=== PATIENT | male | born 1940 | race Caucasian/White ===

== ENCOUNTER 2021-11-22 18:06 | Emergency (ER) | payer MEDICARE, MEDICAID, SELFPAY ==
[2021-11-22 19:07] VITALS: BP 142/76; PULSE 58; RESP 18; TEMP 36.6; O2SAT 95; BMI 20.3
--- NOTE | 2021-11-22 19:17 | W.ED.PSYCHS ---
Documented by User: Lalo Esteban MD 11/27/21 23:50 HPI - Psych General: Chief Complaint: Psychiatric Symptoms Stated Complaint: PSYCH EVAL Time Seen by Provider: 11/22/21 19:16 History of Present Illness: Mr Barr is a 81-year-old gentleman with history of decreased mobility, hypertension, CAD, peripheral vascular disease, speech disturbance, lung cancer, who currently resides at a fdc who presents emergency department due to concern for mental health exam. Per fdc report the patient has been more combative and sexually inappropriate. The patient is significantly difficult to understand which is apparently chronic for him however he denies any specific complaints. Review of Systems General: Reports: 10 or more systems reviewed and unremarkable except in HPI and below PFSH ED PFSH: Medical History BPH (benign prostatic hyperplasia) Dementia Hyperlipemia Hypothyroid Surgical History No significant past surgical history Social History Lives independently: No Housing: [facility] Physical Exam Const: COMMON NORMALS: alert GENERAL APPEARANCE: cooperative and well developed HENMT: COMMON NORMALS: normocephalic and atraumatic HEAD & SCALP: normocephalic and atraumatic THROAT: posterior oropharynx normal Eye: COMMON NORMALS: conjunctivae normal CONJUNCTIVA: Yes conjunctivae normal SCLERA: sclerae normal Neck/C-Spine: COMMON NORMALS: supple GENERAL: Yes trachea midline Resp: COMMON NORMALS: normal respiratory effort EFFORT & INSPECTION: Yes able to speak in complete sentences Cardio: COMMON NORMALS: regular rate and regular rhythm RATE: regular rate RHYTHM: regular rhythm GI: COMMON NORMALS: Soft to palpation PALPATION: Yes Soft to palpation and No Tenderness to palpation present (GI) PERCUSSION: normal to percussion Extremity: GENERAL: Yes normal exam except as noted and No edema Neuro: COMMON NORMALS: CN's II-XII intact bilaterally (Aside from dysarthria), moves all extremities, no focal motor deficits and no sensory deficits noted SENSORIUM/ORIENTATION: Yes alert and No Orientation impaired SPEECH: abnormal speech (Dysarthria) Psych: COMMON NORMALS: mental status grossly normal and Normal thought process present THOUGHT PROCESS: Normal thought process present Course ED course: - Patient was seen and evaluated by me at bedside - Vital signs obtained - Initial evaluation notable for dysarthric speech without other neurologic deficits, baseline is somewhat unclear. Denies medical complaints. - CT head negative for acute intercranial hemorrhage or mass. -Glucose mildly low however patient is not medications that would cause hypoglycemia and he tolerated a sandwich well. - Patient's SNF refused to take the patient back - Patient care handed off to overnight ED physician. Labs added and pending at time of care transition. Vital Signs: Vital signs: Vital Signs Temperature 98.0 F 11/24/21 18:34 Pulse Rate 75 11/25/21 10:13 Respiratory Rate 14 11/25/21 10:13 Blood Pressure 132/68 11/25/21 10:13 Pulse Oximetry 95 11/25/21 10:13 [facility] - Psych Lab Data : 11/23/21 01:52 11/23/21 01:[address] 11/22/21 22:59 IMPRESSION: No acute intracranial abnormality. Laboratory Results WBC 8.1 10^3/uL (4.0-10.0) 11/23/21 01:52 RBC 5.23 10^6/uL (4.1-5.3) 11/23/21 01:52 Hgb 14.7 g/dL (11.7-16.6) 11/23/21 01:52 Hct 44.1 % (42.0-52.0) 11/23/21 01:52 MCV 84.3 fl (80-94) 11/23/21 01:52 MCH 28.1 pg (28.0-34.0) 11/23/21 01:52 MCHC 33.3 g/dL (30.0-36.0) 11/23/21 01:52 RDW 15.7 % (12.1-15.1) H 11/23/21 01:52 Plt Count 237 10^3/cmm (130-400) 11/23/21 01:52 MPV 10.6 fL (7.4-10.4) H 11/23/21 01:52 Neut % (Auto) 66.7 % 11/23/21 01:52 Lymph % (Auto) 15.9 % 11/23/21 01:52 [place] % (Auto) 10.6 % 11/23/21 01:52 Eos % (Auto) 5.8 % 11/23/21 01:52 Baso % (Auto) 0.6 % 11/23/21 01:52 Neut # (Auto) 5.37 10^3/uL (1.8-7.7) 11/23/21 01:52 Lymph # (Auto) 1.3 10^3/uL (0.8-4.8) 11/23/21 01:52 [place] # (Auto) 0.9 10^3/uL (0.2-0.9) 11/23/21 01:52 Eos # (Auto) 0.5 10^3/uL (0.0-0.8) 11/23/21 01:52 Baso # (Auto) 0.1 10^3/uL (0.0-0.1) 11/23/21 01:52 Nucleated RBC % (auto) 0 % 11/23/21 01:52 Nucleated RBCs # 0.0 /100WBC 11/23/21 01:52 Sodium 137 mmol/L (136-145) 11/23/21 01:52 Potassium 4.0 mmol/L (3.5-5.1) 11/23/21 01:52 Chloride 100 mmol/L (98-107) 11/23/21 01:52 Carbon Dioxide 28 mmol/L (22-29) 11/23/21 01:52 Anion Gap 13.0 (5-19) 11/23/21 01:52 BUN 8 mg/dL (8-23) 11/23/21 01:52 Creatinine 0.7 mg/dL (0.7-1.2) 11/23/21 01:52 GFR Calculation Not Reportable 11/23/21 01:52 Glucose 117 mg/dL (65-115) H 11/23/21 01:52 POC Glucose 83 mg/dL (70-110) 11/23/21 08:34 Calculated Osmolality 283 mOsm/kg (285-295) L 11/23/21 01:52 Calcium 9.1 mg/dL (8.5-10.5) 11/23/21 01:52 Total Bilirubin 0.6 mg/dL (0.15-1.2) 11/23/21 01:52 AST 25 U/L (0-40) 11/23/21 01:52 ALT 21 U/L (0-41) 11/23/21 01:52 Alkaline Phosphatase 101 IU/L (40-130) 11/23/21 01:52 Total Protein 7.2 g/dL (6.6-8.7) 11/23/21 01:52 Albumin 4.2 g/dL (3.5-5.2) 11/23/21 01:52 Globulin 3.0 g/dL (1.3-4.6) 11/23/21 01:52 TSH 2.84 uIU/mL (0.27-4.20) 11/23/21 01:52 Urine Color Cancelled 11/23/21 13:00 Urine Color Yellow (Yellow) 11/23/21 13:00 Urine Appearance Cancelled 11/23/21 13:00 Urine Appearance Clear (CLEAR) 11/23/21 13:00 Urine pH 7 (5-7) 11/23/21 13:00 Urine pH Cancelled 11/23/21 13:00 Ur Specific [place] 1.010 (1.005-1.030) 11/23/21 13:00 Ur Specific [place] Cancelled 11/23/21 13:00 Urine Protein Cancelled 11/23/21 13:00 Urine Protein Neg (Negative) 11/23/21 13:00 Urine Glucose (UA) Cancelled 11/23/21 13:00 Urine Glucose (UA) Norm (Normal) 11/23/21 13:00 Urine Ketones Cancelled 11/23/21 13:00 Urine Ketones Negative (Negative) 11/23/21 13:00 Urine Blood Cancelled 11/23/21 13:00 Urine Blood Neg (Negative) 11/23/21 13:00 Urine Nitrate Cancelled 11/23/21 13:00 Urine Nitrate Negative (Negative) 11/23/21 13:00 Urine Bilirubin Cancelled 11/23/21 13:00 Urine Bilirubin Neg (Negative) 11/23/21 13:00 Prot Sulfosalicylic Acd Cancelled 11/23/21 13:00 Urine Urobilinogen Cancelled 11/23/21 13:00 Urine Urobilinogen Neg mg/dL (Negative) 11/23/21 13:00 Ur Leukocyte Esterase Cancelled 11/23/21 13:00 Ur Leukocyte Esterase Negative (Negative) 11/23/21 13:00 Salicylates < 0.3 mg/dL (3-10) L 11/23/21 01:52 Urine Opiates Screen Negative ng/mL (Negative) 11/23/21 13:00 Acetaminophen < 5.0 ug/mL (10-30) L 11/23/21 01:52 Ur Barbiturates Screen Negative ng/mL (Negative) 11/23/21 13:00 Ur Phencyclidine Scrn Negative ng/mL (Negative) 11/23/21 13:00 Ur Amphetamines Screen Negative ng/mL (Negative) 11/23/21 13:00 U Benzodiazepines Scrn Positive ng/mL (Negative) H 11/23/21 13:00 Urine Cocaine Screen Negative ng/mL (Negative) 11/23/21 13:00 U Marijuana (THC) Screen Negative ng/mL (Negative) 11/23/21 13:00 Ethyl Alcohol < 10 mg/dL (0-10) 11/23/21 01:52 Coronavirus 229E (PCR) Not detected (NOT DETECT) 11/23/21 08:15 SARS-CoV-2 (PCR) Not detected (NOT DETECT) 11/23/21 08:15 Discharge Plan Discharge Patient Disposition: [facility] Clinical Impression: Behavioral disorder, Hypothyroid, BPH (benign prostatic hyperplasia), Dementia with behavioral disturbance, Hearing loss of aging Condition: Stable Discharge Diet: Usual diet Discharge Activity: Resume usual activity Coding Level of Care Code ED Label Printing Machinist for Chg Fwd Exam Comprehensive Documented by User: Bro Sevilla DO 11/28/21 06:01 HPI - Psych General: Chief Complaint: Psychiatric Symptoms Stated Complaint: PSYCH EVAL Time Seen by Provider: 11/22/21 19:16 PFSH ED PFSH: Medical History BPH (benign prostatic hyperplasia) Dementia Hyperlipemia Hypothyroid Surgical History No significant past surgical history Social History Lives independently: No Housing: [facility] Course Vital Signs: Vital signs: Vital Signs Temperature 98.0 F 11/24/21 18:34 Pulse Rate 75 11/25/21 10:13 Respiratory Rate 14 11/25/21 10:13 Blood Pressure 132/68 11/25/21 10:13 Pulse Oximetry 95 11/25/21 10:13 MDM - Psych Medical Decision Making Care assumed a change of shift from Dr. Muir. Reported patient was aggressive at the fdc. She did require Ativan and Haldol earlier this morning he is sedate now I cannot arouse him his vital signs are stable labs are reviewed. Dr. Gill was consulted through the night there is nodded no yet on the chart were trying to get a hold of him to get his opinion on. Case management informed me that the patient has been discharged from the fdc and they will not accept him back evidently this is somehow legal due to his behaviors. Not making attempts for geriatric psych placement although this is likely to be difficult. I talked to Dr. Spencer who is television specialist now for psychiatry. We will treat him with Dr. Gill will try to initiate some medications so that were not continually reacting to his behavior with sedative medications. Case management is working on options for disposition and care. 11/24/2021 Receiving facility has been secured we are waiting for transportation. [facility] declined transport due to weather. They plan to transport in the morning. Medical Records I reviewed the patient's medical records. Lab Data I reviewed the patient's lab results. : 11/23/21 01:52 11/23/21 01:[address] 11/22/21 22:59
--- NOTE | 2021-11-22 19:57 | PC.NURSE ---
patient states he made someone mad because I called him a pussy and deneis other complaints. reports using a walker at home. respirations even equal and unlabored.
--- NOTE | 2021-11-22 21:59 | P.NPUCON_ITS ---
Providers/Reason for Consult Consulting Physican/Specialty*: Arcadio Gill MD psychiatry. Reason for Consult*: Evaluate for underlying psychiatric. Requesting Physcian: Lalo Esteban Psych Consult HPI History of Present Illness Chacho Barr is a 81 year old male who presented to the emergency department with the following report: Chief Complaint: Psychiatric Symptoms Stated Complaint: PSYCH EVAL Time Seen by Provider: 11/22/21 19:16 History of Present Illness:?? Mr Barr is a 81-year-old gentleman with history of decreased mobility, hypertension, CAD, peripheral vascular disease, speech disturbance, lung cancer, who currently resides at a custodial who presents emergency department due to concern for mental health exam.? Per custodial report the patient has been more combative and sexually inappropriate.? The patient is significantly difficult to understand which is apparently chronic for him however he denies any specific complaints. He presented and had a conversation with the attending physician and the consult was requested to further there was an actual need for continued geriatric psychiatric services. However he was never able to engage this technical publications writer via video. For about 6 to 7 minutes this technical publications writer attempted to engage him along with the nurse and he never once looked directly at the screen nor even appeared to hear this technical publications writer. He seemed to have mostly purposeless behavior appearing somewhat delirious as he attempted to get him to look up the screen while I was yelling his name. Meds Home Medications and Allergies Home Medications Medication Instructions Recorded Confirmed Last Taken Type aspirin 81 mg tablet,delayed 81 mg PO DAILY@62911/23/21 11/23/21 Unknown History release atorvastatin 40 mg tablet 40 mg PO DAILY@11/23/21 11/23/21 Unknown History carvedilol 3.125 mg tablet 3.125 mg PO BID@629,159911/23/21 11/23/21 Unknown History docusate sodium 100 mg capsule 100 mg PO BID@629,159911/23/21 11/23/21 Unknown History (Colace) gabapentin 300 mg capsule 300 mg PO BID@629,159911/23/21 11/23/21 Unknown History levothyroxine 25 mcg tablet 25 mcg PO DAILY@62911/23/21 11/23/21 Unknown History lisinopril 2.5 mg tablet 2.5 mg PO DAILY@62911/23/21 11/23/21 Unknown History naproxen 500 mg tablet 500 mg PO BID PRN 11/23/21 11/23/21 Unknown History nut. tx, spec. form, See Rx Instructions .ROUTE .COMPLEX 11/23/21 11/23/21 Unknown History lac-free,iron-fos 0.08 gram-2 kcal/mL oral liquid (TwoCal HN) vit no.95-ferrous 1 tab PO DAILY@0630 11/23/21 11/23/21 Unknown History fumarate 28 mg-folic acid 800 mcg tablet ( Multivitamins) tamsulosin 0.4 mg capsule 0.4 mg PO BEDTIME@19 11/23/21 11/23/21 Unknown History vitamin B complex 1 tab PO DAILY@0630 11/23/21 11/23/21 Unknown History Allergies Allergy/AdvReac Type Severity Reaction Status Date / Time Penicillins Allergy Unknown Verified 11/23/21 07:01 Current Medications Current Medications Generic Name Dose Route Start Last Admin Trade Name Freq PRN Reason Stop Dose Admin Carvedilol 3.125 mg 11/23/21 23:15 11/23/21 23:56 Carvedilol 3.125 Mg Tablet PO 3.125 mg BID GISELA Administration Tamsulosin HCl 0.4 mg 11/23/21 23:20 11/23/21 23:57 Tamsulosin 0.4 Mg Capsule PO 0.4 mg BEDTIME GISELA Administration PFSH NPU PFSH: Medical History (Updated 11/24/21 @ 06:16 by Arcadio Gill MD) BPH (benign prostatic hyperplasia) Dementia Hyperlipemia Hypothyroid Mental Status Exam MSE Comments: This is a slender elderly white male with limited dress, g rooming and no eye contact. No abnormal movements except for psychomotor agitation. Uncooperative with exam in mild distress. Speech was limited but garbled like he had marbles in his mouth and unable to be understood in the few times he made utterance to the nurse. Mood not described, affect on the activated. Thought process appeared disorganized. Thought content: Patient did not respond to questions about lethality, but did not demonstrate aggression towards himself or others, did not appear to have any clear perceptual disturbances. Attention and concentration was impaired and memory was unable to be assessed. Insight and judgment were impaired, impulse control impaired. Vitals/I&O/Wt Last Vital Signs Temp 97.8 F 11/22/21 19:07 Pulse 58 L 11/22/21 19:07 Resp 18 11/22/21 19:07 BP 142/76 11/22/21 19:07 Pulse Ox 95 11/22/21 19:07 Weight last 48 hrs Weight 68.039 kg Data NPU : 11/23/21 01:52 11/23/21 01:52 A&P Assessment and plan (1) Hyperlipemia: Status: Acute (2) BPH (benign prostatic hyperplasia): Status: Acute (3) Dementia: Status: Acute (4) Hypothyroid: Status: Acute (5) Dementia with behavioral disturbance: Status: Acute Plan This is a 81-year-old white male with no specific psychiatric history who presents with reports of aggressive behavior that are not being observed here and it is unclear if this is a significant change from his baseline or is his baseline. 1. Continue current medication. 2. Recommend collateral information on his path to the reported changes. 3. We will determine course of action once that is determined. If is baseline we can make recommendation for medication intervention. If for some dramatic changes would make reasonable argument for the neuropsychiatric hospitalization in the geriatric unit. Attestations NPU Medical Necessity Statement*: N/A. Please see primary team note for medical necessity. Coding Level of Care Code Acute Cellar Worker for Cassidy Doan Diagnoses Hyperlipemia E78.5 BPH (benign prostatic hyperplasia) N40.0 Dementia F03.90 Hypothyroid E03.9 Dementia with behavioral disturbance F03.91
--- NOTE | 2021-11-22 22:59 | CTR_ITS ---
PROCEDURE INFORMATION: Exam: CT Head Without Contrast Exam date and time: 11/22/2021 10:59 PM Age: 81 years old Clinical indication: Altered mental status/memory loss; Patient HX: AMS; Additional info: Dysarthria TECHNIQUE: Imaging protocol: Computed tomography of the head without contrast. Radiation optimization: All CT scans at this facility use at least one of these dose optimization techniques: automated exposure control; mA and/or kV adjustment per patient size (includes targeted exams where dose is matched to clinical indication); or iterative reconstruction. COMPARISON: No relevant prior studies available. RADIATION DOSE METRICS: Total DLP (mGy-cm): 1158.03 FINDINGS: Brain: Age appropriate atrophy and small vessel ischemic change. No evidence of intracranial hemorrhage, mass effect, midline shift or extra-axial fluid collections. Midline structures are normal. Pollard-white matter differentiation is normal. There are multiple small hypodensities in the basal ganglia consistent with remote lacunar infarctions. Cerebral ventricles: No ventriculomegaly. Paranasal sinuses: Visualized sinuses are unremarkable. No fluid levels. Mastoid air cells: Visualized mastoid air cells are well aerated. Vasculature: Carotid atherosclerotic calcification. Bones/joints: Unremarkable. No acute fracture. Soft tissues: Unremarkable. CT/CT head wo con* [id number] IMPRESSION: No acute intracranial abnormality.
[2021-11-22 23:51] LABS: Glucose Point of Care 60 mg/dL (70-110)
[2021-11-22 23:55] LABS: Glucose Point of Care 58 mg/dL (70-110)
[2021-11-23 01:02] LABS: Glucose Point of Care 100 mg/dL (70-110)
--- NOTE | 2021-11-23 01:18 | PC.NURSE ---
attempted report back to facility, nurse states they will not take him back he has been discharged from their service. charge nurse notified.
[2021-11-23 01:57] LABS: Basophils # 0.1 10^3/uL (0.0-0.1); Basophils % 0.6 %; Eosinophils # 0.5 10^3/uL (0.0-0.8); Eosinophils % 5.8 %; Hematocrit 44.1 % (42.0-52.0); Hemoglobin 14.7 g/dL (11.7-16.6); Lymphocytes # 1.3 10^3/uL (0.8-4.8); Lymphocytes % 15.9 %; Mean Corpuscular HGB Conc 33.3 g/dL (30.0-36.0); Mean Corpuscular Hemoglobin 28.1 pg (28.0-34.0); Mean Corpuscular Volume 84.3 fl (80-94); Mean Platelet Volume 10.6 fL (7.4-10.4); Monocytes # 0.9 10^3/uL (0.2-0.9); Monocytes % 10.6 %; Neutrophils # 5.37 10^3/uL (1.8-7.7); Neutrophils % 66.7 %; Nucleated Red Blood Cells % 0 %; Platelet Count 237 10^3/cmm (130-400); Red Blood Count 5.23 10^6/uL (4.1-5.3); Red Cell Distribution Width 15.7 % (12.1-15.1); White Blood Count 8.1 10^3/uL (4.0-10.0)
[2021-11-23 02:28] LABS: Acetaminophen < 5.0 ug/mL (10-30); Alanine Aminotransferase 21 U/L (0-41); Albumin Level 4.2 g/dL (3.5-5.2); Alcohol Level < 10 mg/dL (0-10); Alkaline Phosphatase 101 IU/L (40-130); Aspartate Amino Transferase 25 U/L (0-40); Blood Urea Nitrogen 8 mg/dL (8-23); Calcium 9.1 mg/dL (8.5-10.5); Carbon Dioxide 28 mmol/L (22-29); Chloride 100 mmol/L (98-107); Glucose 117 mg/dL (65-115); Osmolality Calculated 283 mOsm/kg (285-295); Salicylate < 0.3 mg/dL (3-10); Sodium 137 mmol/L (136-145); Thyroid Stimulating Hormone 2.84 uIU/mL (0.27-4.20); Total Bilirubin 0.6 mg/dL (0.15-1.2); Total Protein 7.2 g/dL (6.6-8.7)
[2021-11-23] MEDS: haloperidol inj 5 mg/mL INJ 1 mL 2 MG IM (03:57)
[2021-11-23] MEDS: LORazepam 2 mg/mL INJ 1 mL 1 MG IM (03:57)
[2021-11-23 07:00] VITALS: PULSE 66; O2SAT 96
[2021-11-23 08:38] LABS: Glucose Point of Care 83 mg/dL (70-110)
--- NOTE | 2021-11-23 09:45 | ECG_ITS ---
[facility] Test Date: 2021-11-23 Pat Name: Chacho Barr Department: Room: Gender: Male Cardiovascular Sonographer: : 1940 Requested By: Bro Tan Order Number: [id number] John MD: Kristan Al M.D. Measurements Intervals [place] Rate: 69 P: 65 [place]: 177 QRS: -21 QRSD: 94 T: 72 QT: 382 QTc: 410 Interpretive Statements SINUS RHYTHM BORDERLINE LEFT AXIS DEVIATION [QRS AXIS < -20] No previous ECG available for comparison Electronically Signed On 11-23-2021 14:45:33 DRIER UNLOADER by Kristan Al M.D. [email or web address]
[2021-11-23 09:49] VITALS: BP 134/75; RESP 18
--- NOTE | 2021-11-23 09:57 | PC.NURSE ---
Addendum entered by Michelle Miller RN 11/23/21 14:15: Sitting up & eating a snack, drinking a soda. Urine to lab. Original Note: Has been sleeping & mostly cooperative this shift. He did refuse EKG by pulling stickers off, swinging @staff. VSS, RA sats >90%.
[2021-11-23 11:39] LABS: Adenovirus Not Detected (NOT DETECT); Chlamydia Pneumoniae Not Detected (NOT DETECT); Coronavirus 229E,HKU1,NL63,OC4 Not Detected (NOT DETECT); Human Metapneumovirus Not Detected (NOT DETECT); Human Rhinovirus/Enterovirus Not Detected (NOT DETECT); Influenza A Not Detected (NOT DETECT); Influenza A H1 Not Detected (NOT DETECT); Influenza A H1-2009 Not Detected (NOT DETECT); Influenza A H3 Not Detected (NOT DETECT); Influenza B Not Detected (NOT DETECT); Mycoplasma Pneumoniae Not Detected (NOT DETECT); Parainfluenza Virus Type 1 Not Detected (NOT DETECT); Parainfluenza Virus Type 2 Not Detected (NOT DETECT); Parainfluenza Virus Type 3 Not Detected (NOT DETECT); Parainfluenza Virus Type 4 Not Detected (NOT DETECT); Respiratory Syncytial Virus A Not Detected (NOT DETECT); Respiratory Syncytial Virus B Not Detected (NOT DETECT); SARS-COV-2 Not Detected (NOT DETECT)
[2021-11-23 13:19] LABS: Add Urine Microscopic? NO; Charge for UA Resulting for Rev
[2021-11-23 13:25] LABS: Bilirubin Urine Neg (Negative); Blood Urine Neg (Negative); Glucose Urine UA Norm (Normal); Ketones Urine Negative (Negative); Leukocyte Esterase Urine Negative (Negative); Nitrate Urine Negative (Negative); Protein Urine Neg (Negative); Urine Appearance Clear (CLEAR); Urine Color Yellow (Yellow); Urobilinogen Urine Neg (Negative); pH Urine 7 (5-7)
[2021-11-23 13:34] LABS: Amphetamines Screen Urine Negative (Negative); Barbiturates Screen Urine Negative (Negative); Benzodiazepines Screen Urine Positive (Negative); Cocaine Screen Urine Negative (Negative); Opiate Screen Urine Negative (Negative); PCP Screen Urine Negative (Negative); THC Screen Urine Negative (Negative)
--- NOTE | 2021-11-23 15:46 | DCPLANNER ---
Addendum entered by Priscilla Lay 11/24/21 12:25: assistant merchandise manager looked for placement for patient. assistant merchandise manager called and faxed patients information to the following facilities: [facility] - declined [facility] - declined [facility] - left voicemail [facility] - [facility] paperwork [place] [facility] [facility] - [facility] [facility] - declined [facility] - full [facility] - full [facility] - left voicemail [facility] - [facility] - full no beds [facility] - spoke with [facility] - full [facility] - faxed paperwork [facility] - faxed paperwork [facility] - faxed paperwork [facility] - faxed paperwork [facility] - [facility] in [place] - full Bailee Romero, called and stated that they would accept patient. assistant merchandise manager informed charge nurse, community development worker, nurse and physician. Original Note: assistant merchandise manager faxed patients information to [facility] placement.
[2021-11-23 21:57] VITALS: BP 180/89
[2021-11-23] MEDS: carvedilol 3.125 mg Tablet PO (23:56)
[2021-11-23] MEDS: tamsulosin 0.4 mg Capsule PO (23:57)
[2021-11-24 00:14] VITALS: PULSE 90; O2SAT 95
--- NOTE | 2021-11-24 03:07 | PC.NURSE ---
Pt. resting in bed with sitter outside of room watching over patient.
--- NOTE | 2021-11-24 05:33 | PC.NURSE ---
Pt. resting in bed with eyes closed . pt. has shown no sign of anger, hostility or given staff any problems.
[2021-11-24] MEDS: aspirin 81 mg EC Tablet PO (08:36)
[2021-11-24] MEDS: carvedilol 3.125 mg Tablet PO ×2 (08:36→18:41)
[2021-11-24] MEDS: levothyroxine 25 mcg Tablet PO (08:36)
[2021-11-24] MEDS: gabapentin 300 mg Capsule PO ×2 (08:36→18:41)
[2021-11-24] MEDS: lisinopril 2.5 mg Tablet PO (09:22)
[2021-11-24 14:28] VITALS: BP 104/66; PULSE 81; RESP 16; TEMP 36.6; O2SAT 94
[2021-11-24 18:34] VITALS: BP 117/71; PULSE 67; RESP 16; TEMP 36.7; O2SAT 94
[2021-11-24] MEDS: tamsulosin 0.4 mg Capsule PO (21:29)
[2021-11-24 21:38] VITALS: BP 109/67; PULSE 52; RESP 17; O2SAT 94
[2021-11-25 03:00] VITALS: BP 116/78; PULSE 56; RESP 17; O2SAT 95
[2021-11-25] MEDS: carvedilol 3.125 mg Tablet PO (08:53)
[2021-11-25] MEDS: gabapentin 300 mg Capsule PO (08:53)
[2021-11-25] MEDS: lisinopril 2.5 mg Tablet PO (08:53)
[2021-11-25] MEDS: levothyroxine 25 mcg Tablet PO (08:53)
[2021-11-25] MEDS: aspirin 81 mg EC Tablet PO (08:53)
[2021-11-25 08:58] VITALS: BP 176/92; PULSE 58; RESP 15
[2021-11-25 10:13] VITALS: BP 132/68; PULSE 75; RESP 14; O2SAT 95
== END 2021-11-25 10:15 ==
PROVIDERS: Emergency Medicine; Emergency Provider Family Medicine
DX: R46.89 Other symptoms and signs involving appearance and behavior (principal); F91.9 Conduct disorder, unspecified; F03.91 Unspecified dementia, unspecified severity, with behavioral disturbance; H91.8X9 Other specified hearing loss, unspecified ear; N40.0 Benign prostatic hyperplasia without lower urinary tract symptoms; E03.9 Hypothyroidism, unspecified; E78.5 Hyperlipidemia, unspecified; Z20.822 Contact with and (suspected) exposure to COVID-19
CPT/HCPCS: 36415; 36416; 70450; 80053; 80306; 80307; 81003; 82962; 84443; 85025; 87635; 93005; 96372; 99285; J1630; J2060